=== PATIENT | female | born 1950 | race Two or more races ===

== ENCOUNTER 2018-02-25 02:00 | Emergency (ER) | payer OTHER ==
[~2018-02-25] VITALS: Ht 165.1 cm; Wt 78.9 kg
[2018-02-25] MEDS ORDERED: OMEGA-31000 MG (02:10)
[2018-02-25] MEDS ORDERED: ALTACE10 MG (02:10)
[2018-02-25] MEDS ORDERED: CRESTOR10 MG (02:10)
[2018-02-25] MEDS ORDERED: NITROFURANTOIN100 MG PO (08:09)
== END 2018-02-25 08:20 | disposition home or self-care (01) ==
LOC: ER 02:00
DX: N39.0 Urinary tract infection, site not specified (principal); R68.83 Chills (without fever)